=== PATIENT | male | born 2000 | race Caucasian/White ===

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

== ENCOUNTER 2023-05-22 17:41 | Emergency (ER) | payer OTHER ==
[2023-05-22] MEDS ORDERED: BACITRACIN OINT 1 EACH PACKET TOPICAL ONE (18:16)
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
[2023-05-22 18:48] VITALS: BP 124/79; PULSE 77; RESP 18; TEMP 98.9
== END 2023-05-22 18:50 | disposition home or self-care (01) ==
LOC: EC 17:41
DX: T23.242A Burn of second degree of multiple left fingers (nail), including thumb, initial encounter (principal); T23.211A Burn of second degree of right thumb (nail), initial encounter; T31.11 Burns involving 10-19% of body surface with 10-19% third degree burns; F17.290 Nicotine dependence, other tobacco product, uncomplicated; F12.90 Cannabis use, unspecified, uncomplicated; X19.XXXA Contact with other heat and hot substances, initial encounter; Y93.89 Activity, other specified; Y99.0 Civilian activity done for income or pay
CPT/HCPCS: 99283

== ENCOUNTER 2023-05-25 12:39 | Emergency (ER) | payer OTHER ==
[2023-05-25 13:05] VITALS: BP 123/90; PULSE 84; RESP 16; TEMP 98.5
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
== END 2023-05-25 13:35 | disposition home or self-care (01) ==
LOC: EC 12:39
DX: T23.242A Burn of second degree of multiple left fingers (nail), including thumb, initial encounter (principal); F17.290 Nicotine dependence, other tobacco product, uncomplicated; F12.90 Cannabis use, unspecified, uncomplicated; X08.8XXA Exposure to other specified smoke, fire and flames, initial encounter; Y99.0 Civilian activity done for income or pay
CPT/HCPCS: 16020; 99283